=== PATIENT | male | born 1975 | race Caucasian/White ===

== ENCOUNTER 2022-11-08 18:15 | Emergency (ER) | payer BC ==
[~2022-11-08] VITALS: Ht 170.2 cm; Wt 65.8 kg
[2022-11-08 18:27] VITALS: BP_SYST 142
[2022-11-08 19:28] LABS: BASOPHILS % (AUTO) 0.3 % (0.0-2.0); EOSINOPHILS # (AUTO) 0.2 K/uL (0.0-0.4); EOSINOPHILS % (AUTO) 2.8 % (0.0-4.0); HEMATOCRIT 40.3 % (36-54); HEMOGLOBIN 13.3 g/dL (14.0-18.0); LYMPHOCYTES # (AUTO) 0.8 K/uL (1.0-5.5); LYMPHOCYTES % (AUTO) 11.9 % (20.5-51.5); MEAN CORPUSCULAR HEMOGLOBIN 30 pg (27-31); MEAN CORPUSCULAR HGB CONC 33 % (32-36); MEAN CORPUSCULAR VOLUME 91 fL (79.0-98.0); MONOCYTES # (AUTO) 0.5 K/uL (0.0-1.0); MONOCYTES % (AUTO) 8.2 % (1.7-9.3); NEUTROPHILS # (AUTO) 4.9 K/uL (1.8-7.7); NEUTROPHILS % (AUTO) 76.8 % (40.0-70.0); PLATELET COUNT (AUTO) 215 K/uL (130-430); RED BLOOD CELL COUNT(AUTO) 4.46 MIL/uL (4.2-6.2); RED CELL DISTRIBUTION WIDTH 12.8 % (9.0-15.0); WHITE BLOOD COUNT (AUTO) 6.3 K/uL (4.8-10.8)
[2022-11-08 19:40] LABS: CALCIUM 8.8 mg/dL (8.4-11.0); CREATININE 1.21 mg/dL (0.55-1.30)
[2022-11-08 19:43] LABS: ALBUMIN 3.4 g/dL (3.4-4.8); TOTAL BILIRUBIN 0.4 mg/dL (0.0-1.0)
[2022-11-08] MEDS ORDERED: APIX5TAB PO ×2 (20:37→20:45)
[2022-11-08] MEDS ORDERED: APIXABAN 2.5 MG TABLET PO ONE (20:45)
[2022-11-08] MEDS ORDERED: APIXABAN 2.5 MG TABLET ONE (21:03)
[2022-11-08 21:12] VITALS: BP_SYST 150
== END 2022-11-08 21:12 | disposition home or self-care (01) ==
LOC: SED 18:15
DX: I82.431 Acute embolism and thrombosis of right popliteal vein (principal); M79.661 Pain in right lower leg; I10 Essential (primary) hypertension; Z79.899 Other long term (current) drug therapy
CPT/HCPCS: 36415; 80053; 85025; 85379; 93970; 99284